=== PATIENT | female | born 1980 ===

== ENCOUNTER 2017-05-21 09:47 | Emergency (ER) | payer OTHER ==
[2017-05-21 10:05] VITALS: BMI 31.6
[2017-05-21 15:32] VITALS: BP 112/75; PULSE 83
== END 2017-05-21 11:21 | disposition home or self-care (01) ==
LOC: H.EROB 09:47 → H.EROB2 09:47
DX: O47.1 False labor at or after 37 completed weeks of gestation (principal); Z3A.39 39 weeks gestation of pregnancy

== ENCOUNTER 2017-05-25 07:07 | Inpatient (IN) | payer OTHER ==
[2017-05-25 07:42] VITALS: BMI 34.7
[2017-05-25] MEDS ORDERED: Lactated Ringer's 1,000 ML IV SCH ×2 (08:15→09:55)
[2017-05-25] MEDS: Lactated Ringer's 1,000 ML IV SCH ×2 (08:15→09:15)
[2017-05-25 08:42] LABS: BASO # 0.1 K/uL (0.0-0.2); BASO % 0.5 % (0.0-2.0); EOS # 0.1 K/uL (0.0-0.7); EOS % 0.8 % (0.0-4.0); HEMATOCRIT 35.4 % (34.0-47.0); LYMPH # 2.1 K/uL (1.0-4.3); LYMPH % 19.6 % (20.0-40.0); MEAN CELL VOLUME 90.5 fl (81.0-99.0); MEAN CORPUSCULAR HEMOGLOBIN 30.5 pg (27.0-31.0); MEAN CORPUSCULAR HGB CONC 33.7 g/dL (33.0-37.0); MEAN PLATELET VOLUME 8.4 fl (7.2-11.7); MONO # 0.6 K/uL (0.0-0.8); MONO % 5.9 % (0.0-10.0); NEUT # 7.9 K/uL (1.8-7.0); NEUT % 73.2 % (50.0-75.0); RED CELL DISTRIBUTION WIDTH 15.6 % (11.5-14.5); WHITE BLOOD COUNT 10.8 K/uL (4.8-10.8)
[2017-05-25] MEDS ORDERED: Oxytocin 30 units/LR 500ML 30 U/500 ML BAG IV ONE (08:58)
[2017-05-25] MEDS ORDERED: Bupivacaine HCl 0.25% PF (10 ml) Inj ONE (09:33)
[2017-05-25] MEDS ORDERED: Lidocaine 1% Inj (20ml) ONE (14:58)
--- NOTE | 2017-05-25 16:34 | OBADHP ---
Datetime: 05/25/2017 08:23 Admit Comment, IP Provider: 37 y/o 001 at 39.4 weeks by 13 week U/S presents with contractions since 3am occurring every 10 minutes and progressively becoming more frequent. Denies vaginal bleedi ng but reports mucous-like discharge. Reports good movement. Denies headache, sob, dysuria, emi f pain, n/v/d. Last sexual activity was 3 days ago. Hx: Receives care at [facility]. Care labs reviewed. GBS negativ e, HIV non reactive, RPR negative OBHx: 1 prior , term, no complications Past medical history: Denies Past surgical history: Denies Medications: PNV Allergies: NKDA Social HX: Denies alcohol, smoking, or drugs Physical exam: General: Mildly distressed, NAD, Alert and oriented HEENT: no facial edema Cardiac: No murmurs Pulm: Clear to auscultation BL Abdomen: Gravid, NT Cervix: 3-4cm dilated, -2 station, with 75% effacement Assessment: IUP at 39.4 weeks gestation in active labor. Admitted for anticipation of spontaneous vaginal deli very Plans: Monitor for progression of labor. Monitor FHT and maternal vital signs Type and Screen, CBC Anesthesiology Consult Fluids Pelvic Type - PN: Adequate Extremities - PN: Normal Abdomen - PN: Normal Back - PN: Normal Breast - PN: Normal Lungs - PN: Normal Heart - PN: Normal Thyroid - PN: Normal Neurologic - PN: Normal HEENT - PN: Normal General - PN: Normal Presentation-Admit: Vertex FHR - Baseline A Provider: 140 Membranes, Provider: Intact Contraction Comments Provider: q3-4 Gestation - Est Wks by US: 39+ Vital Signs Provider: Reviewed; Within Normal Limits IP Chief Complaint: Uterine contractions NICHD Variability Prov Fetus A: Moderate 6-25bpm NICHD Accel Fetus A IP Provider: 10X10 FHR Category Provider Fetus A: Category I NICHD Decel Fetus A IP Provider: None Dilatation, Provider: 3-4 Effacement, Provider: 75% Station, Provider: -2 Genitourinary Exam: Normal DTRs - PN: Normal EGA AdmitDate IP: 39.4 IP Adm Impression: Term, intrauterine IP Admit Plan: Admit to unit; Initiate labor protocol Datetime: 05/21/2017 11:03 IP Hx Assessment: The History has been Reviewed and is Current
--- NOTE | 2017-05-25 16:38 | OBDS ---
DELIVERY PERSONNEL Delivery Doctor: Valentnia Martinez MD Mill Set Up: Sheri Martínez RN/Izabela/Fazal Anesthesiologist: Aakash Fischer MD MATERNAL INFORMATION Delivery Anesthesia: Epidural Medications in Delivery: Pitocin Placenta Cultured: No Maternal Complications: None Provider Comments: delivery of live baby girl 9/9 clear fluid 1loose nuchal cord first perinea l laceration and repair LABOR SUMMARY EDC: 05/28/2017 00:00 No. Babies in Womb: 1 Attempted: No Labor Anesthesia: Epidural LABOR INFORMATION Reason for Induction: Not Applicable Onset of Labor: 05/25/2017 07:00 Complete Dilatation: 05/25/2017 15:20 Oxytocin: Augmentation Group B Beta Strep: Negative Antibiotics # of Doses: n/a Antibiotics Time of Last Dose: n/a Steroids Given: None Reason Steroids Not Administered: Not Applicable Other Reason Not Administered: n/a MEMBRANES Membranes Rupture Method: Artificial Rupture of Membranes: 05/25/2017 15:20 Length of Rupture (hrs): 0.63 Amniotic Fluid Color: Clear Amniotic Fluid Amount: Small Amniotic Fluid Odor: Normal STAGES OF LABOR Stage 1 hrs: 8 Stage 1 min: 20 Stage 2 hrs: 0 Stage 2 min: 38 Stage 3 hrs: 0 Stage 3 min: 7 Total Time in Labor hrs: 9 Total Time in Labor min: 5 VAGINAL DELIVERY Episiotomy: None Laceration Extension: First Degree Laceration Type: Perineal Laceration Repair: Yes Laceration Repair Note: repair of first degree laceration with 2-0chromic Initial Vag Sponge Count: laps=5 Final Vag Sponge Count: laps=5 Initial Vag Sharps Count: 1 Final Vag Sharps Count: 1 Sponge Count Correct: Yes Sharps Count Correct: 1 Count Comment: laps=5 BABY A INFORMATION Delivery Date/Time: 05/25/2017 15:58 Method of Delivery: Vaginal Born in Route : No : N/A Forceps: N/A Vacuum Extraction: N/A Shoulder Dystocia : No SHOULDER DYSTOCIA BABY A Infant Delivery Date/Time: 05/25/2017 15:58 PRESENTATION/POSITION BABY A Presentation: Cephalic Cephalic Presentation: Vertex Breech Presentation: N/A PLACENTA INFORMATION BABY A Placenta Delivery Time : 05/25/2017 16:05 Placenta Method of Delivery: Spontaneous Placenta Status: Delivered SCORES BABY A Heart Rate 1 min: >100 bpm Resp Effort 1 min: Good Cry Reflex Irritability 1 min: Cough or Sneeze or Pulls Away Muscle Tone 1 min: Active Motion Color 1 min: Body [place], Extremities Blue Resuscitation Effort 1 min: Tactile Stimulation SCORE 1 MIN: 9 Heart Rate 5 min: >100 bpm Resp Effort 5 min: Good Cry Reflex Irritability 5 min: Cough or Sneeze or Pulls Away Muscle Tone 5 min: Active Motion Color 5 min: Body [place], Extremities Blue Resuscitation Effort 5 min: N/A SCORE 5 MIN: 9 INFORMATION BABY A Gestational Age at Delivery: 39.4 Gestational Status: Term Outcome : Liveborn Condition : Stable Infant Sex: Female IDENTIFICATION/MEDS BABY A ID Band Number: [id number] ID Band Location: Left Leg; Left Arm Vitamin K Given : Not Given Erythromycin Given: Not Given WEIGHT/LENGTH BABY A Infant Birthweight (gms): 3085 Weight (lb): 6 Weight (oz): 13 CORD INFORMATION BABY A No. Cord Vessels: 3 Nuchal Cord : Around Neck x2, Loose Nuchal Cord Other: n/a True Knot: n/a Infant Cord pH Baby Arterial: n/a Infant Cord pH Baby Venous: n/a Cord Blood Taken: Yes Banking/Donate Info: n/a Infant Suction: Mouth; Nose ASSESSMENT BABY A Complications: None Physical Findings at Delivery: Within Normal Limits Infant Respirations: Appears Normal Core Drier/ALS Called : No Infant Care By: Dr Vasques/Fazal/Izabela Transferred To: Remains with Mother
[2017-05-25] MEDS ORDERED: Oxycodone/Acetaminophen 5/325 mg Tab PO PRN ×2 (16:40)
[2017-05-25] MEDS ORDERED: Fentanyl/Bupivacaine HCl 250 ML EPI ONE (17:57)
[2017-05-26 06:11] LABS: MEAN CELL VOLUME 90.1 fl (81.0-99.0); MEAN CORPUSCULAR HGB CONC 33.3 g/dL (33.0-37.0); RED CELL DISTRIBUTION WIDTH 15.4 % (11.5-14.5); WHITE BLOOD COUNT 12.1 K/uL (4.8-10.8)
--- NOTE | 2017-05-26 09:12 | OBPPN ---
Datetime: 05/26/2017 09:08 PP Pain Prov: Within normal limits PP Nausea Prov: Denies PP Flatus Prov: Yes PP BM Prov: No PP Breasts Prov: Normal PP Heart Prov: Normal PP Lungs Prov: Normal PP Abdomen/Uterus Prov: Normal PP Lochia Prov: Normal PP Vulva/Perineum Prov: Normal PP CVA Tenderness Prov: Normal PP Extremities Prov: Normal PP Progress Prov: Normal PP Impression Prov: Normal progression PP Plan Prov: Continue present management PP Progress Note Prov: stable ppd1 continue present care patient to have rhogam IP PP Procedures: None Vital Signs Provider PP: Reviewed; Within Normal Limits
--- NOTE | 2017-05-27 08:29 | OBPPN ---
Datetime: 05/27/2017 08:24 PP Pain Prov: Within normal limits PP Nausea Prov: Denies PP Flatus Prov: Yes PP BM Prov: Yes PP Breasts Prov: Normal PP Heart Prov: Normal PP Lungs Prov: Normal PP Abdomen/Uterus Prov: Normal PP Lochia Prov: Normal PP Vulva/Perineum Prov: Normal PP CVA Tenderness Prov: Normal PP Extremities Prov: Normal PP Progress Prov: Normal PP Impression Prov: Normal progression PP Plan Prov: Continue present management PP Progress Note Prov: stable ppd2 dc home today IP PP Procedures: None Vital Signs Provider PP: Reviewed; Within Normal Limits
--- NOTE | 2017-05-27 08:33 | OBDCSUM ---
Datetime: 05/27/2017 08:26 Discharged to, Provider: Home Follow up at, Provider: Disch Instr Activity: Bedrest; May be up to bathroom; May be up for meals; May Shower Disch Instr Diet: Regular Discharge Instructions, Provider: Routine instructions given Discharge Diagnosis, Provider: Term Delivered Discharge Time: 05/27/2017 08:26 Follow up in weeks, Provider: 5-6weeks Disch Referrals: None Disch Activity Restrictions: No exercising; No lifting; No driving; Minimize walking; Minimize stair -climbing; No sexual activity; Nothing in vagina - [place], tampons, douche Discharge Comment, Provider: arik home today rto 5-6weeks call office if any problems Contraception after Delivery: Undecided
[2017-05-27 18:56] VITALS: BP 132/59; PULSE 92; RESP 20; TEMP 98.4; O2SAT 100
== END 2017-05-27 14:45 | disposition home or self-care (01) | DRG 373 ==
LOC: H.EROB 07:07 → H.EROB2 07:07 → H.L&D 08:01 → H.OB/GYN 18:35
PROVIDERS: ADMIT Specialist; ATTEND Specialist
PROC: 10E0XZZ Delivery of Products of Conception, External Approach (ICD-10-PCS; principal; 2017-05-25)
PROC: 0HQ9XZZ Repair Perineum Skin, External Approach (ICD-10-PCS; 2017-05-25)
PROC: 4A1HXCZ Monitoring of Products of Conception, Cardiac Rate, External Approach (ICD-10-PCS; 2017-05-25)
DX: O69.81X0 Labor and delivery complicated by cord around neck, without compression, not applicable or unspecified (principal); O70.0 First degree perineal laceration during delivery; Z37.0 Single live birth; Z3A.39 39 weeks gestation of pregnancy